=== PATIENT | male | born 1965 | race Caucasian/White ===

== ENCOUNTER 2018-11-08 10:05 | Emergency (ER) | payer BC ==
[2018-11-08 10:14] VITALS: BP 150/94
[2018-11-08] MEDS ORDERED: ERYTHROMYCIN 0.5% OPH OINT 1 GM UNIT DOSE OU ONE (10:17)
[2018-11-08] MEDS ORDERED: TETRACAINE HCL 0.5% OPH SOLN 4 ML OU ONE (10:18)
--- NOTE | 2018-11-08 10:48 | ER Document Report ---
ED Eye Complaint - General Chief Complaint: Eye Problem Stated Complaint: EYE PROBLEM Time Seen by Provider: 11/08/18 10:16 TRAVEL OUTSIDE OF THE [place] IN LAST 30 DAYS: No - HPI Notes: Patient is a 52-year-old male that presents to the emergency department for chief complaint of superglue in his right eye. Patient reports accidentally putting superglue in his right eye instead of eyedrops just prior to arrival in the emergency room. He denies wearing contact lenses or glasses. He is describing a sharp pain on his right eye. EMS did attempt to irrigate it which she states gave him some improvement of symptoms. He reports blurry vision in the right eye. Patient states he has seasonal allergies and frequently uses eyedrops, he did not intend on putting the glue in his eye. Past Medical History: Diabetes, hypertension Past Surgical History: Negative Social History: Denies tobacco or drug use Family History: Reviewed and noncontributory for presenting illness Allergies: Reviewed, see documented allergy list. REVIEW OF SYSTEMS: CONSTITUTIONAL : No fever No chills No diaphoresis No recent illness EENT: vision changes Right eye pain No congestion No sore throat CARDIOVASCULAR: No chest pain No palpitations RESPIRATORY: No shortness of breath No cough No difficulty breathing GASTROINTESTINAL: No abdominal pain No nausea No vomiting No diarrhea GENITOURINARY: No dysuria No hematuria No difficulty urinating MUSCULOSKELETAL: No back pain No leg pain No arm pain SKIN: No rashes No lesions LYMPHATIC: No swollen, enlarged glands. NEUROLOGICAL: No lightheadedness No headache No weakness No paresthesias PSYCHIATRIC: No anxiety No depression PHYSICAL EXAMINATION: Vital signs reviewed, nursing noted reviewed. GENERAL: Well-appearing, well-nourished and in no acute distress. HEAD: Atraumatic, normocephalic. EYES: Left eye appears normal. Right eye conjunctival injection with superglue partially closing the eye. Small fluorescein uptake on cornea. Normal ocular movement, PERRLA ENT: nares patent, oropharynx clear without exudates. Moist mucous membranes. NECK: Normal range of motion, supple without lymphadenopathy LUNGS: Breath sounds clear to auscultation bilaterally and equal. No wheezes rales or rhonchi. HEART: Regular rate and rhythm without murmurs ABDOMEN: Soft, nontender, normoactive bowel sounds. No rebound, guarding, or rigidity. No masses appreciated. EXTREMITIES: Nontender, good range of motion, no pitting or edema. NEUROLOGICAL: No focal neurological deficits. Moves all extremities spo ntaneously Motor and sensory grossly intact on exam. PSYCH: Normal mood, normal affect. SKIN: Warm, Dry, normal turgor, no rashes or lesions noted on exposed skin - Related Data Allergies/Adverse Reactions: onion Allergy (Verified 11/08/18 10:23) Past Medical History - Social History Smoking Status: Never Smoker Frequency of alcohol use: Rare Family History: Reviewed & Not Pertinent Patient has suicidal ideation: No Patient has homicidal ideation: No Renal/ Medical History: Denies: Hx Peritoneal Dialysis Physical Exam - Vital signs Vitals: Temp Pulse Resp BP Pulse Ox 98.2 F 100 18 150/94 H 97 11/08/18 10:13 11/08/18 10:13 11/08/18 10:13 11/08/18 10:13 11/08/18 10:13 Course - Re-evaluation Re-evalutation: 11/08/18 10:48 Vitals reviewed. Nursing notes reviewed. Erythromycin was placed in the right eye to loosen the superglue. I was able to trim a small part of his lashes to open his lids completely. Tetracaine was placed in the eye and he does have a small corneal abrasion. Patient's care was discussed with Dr. Zhou's office who states they will see him immediately. They will perform further irrigation if they see a need. Patient will be discharged from the emergency room and directed to go over to Dr. Zhou's office immediately. He is stable at discharge - Vital Signs Vital signs: Temp Pulse Resp BP Pulse Ox 98.2 F 100 18 150/94 H 97 11/08/18 10:13 11/08/18 10:13 11/08/18 10:13 11/08/18 10:13 11/08/18 10:13 Discharge - Discharge Clinical Impression: Corneal abrasion, right Qualifiers: Encounter type: initial encounter Qualified Code(s): S05.01XA - Injury of conjunctiva and corneal abrasion without foreign body, right eye, initial encounter Eye foreign bodies Qualifiers: Encounter type: initial encounter Laterality: right Qualified Code(s): T15.91XA - Foreign body on external eye, part unspecified, right eye, initial encounter Condition: Stable Disposition: HOME, SELF-CARE Instructions: Corneal Abrasion ([facility]) Additional Instructions: Go directly to Dr. Zhou's office for further ophthalmology evaluation Referrals: PORSCHE ZHOU MD [ACTIVE STAFF] - 11/08/18
== END 2018-11-08 10:30 | disposition home or self-care (01) ==
LOC: ER 10:05
DX: S05.01XA Injury of conjunctiva and corneal abrasion without foreign body, right eye, initial encounter (principal); T15.91XA Foreign body on external eye, part unspecified, right eye, initial encounter; H57.11 Ocular pain, right eye; H53.8 Other visual disturbances; X58.XXXA Exposure to other specified factors, initial encounter
CPT/HCPCS: 99283; J3490